=== PATIENT | female | born 1950 | race Caucasian/White ===

== ENCOUNTER 2016-11-13 18:45 | Emergency (ER) | payer OTHER ==
[2016-11-13 19:30] VITALS: BP 148/60
[2016-11-13] MEDS ORDERED: Albuterol/Ipratropium NEB.SOL* Albuterol 2.5 MG/Ipratropium 0.5 MG 3 ML INH ONE (19:40)
[2016-11-13] MEDS ORDERED: Azithromycin TAB* 250 MG PO ONE (20:15)
[2016-11-13] MEDS ORDERED: Albuterol HFA INHALER* 8 gm MDI INH PRN (20:15)
[2016-11-13] MEDS ORDERED: Albuterol HFA INHALER* 8 gm MDI INH ONE (20:30)
--- NOTE | 2016-11-13 20:44 | UC ---
Throat Pain/Nasal Claudio HPI - HPI Summary HPI Summary: PRODUCTIVE COUGH HEADACHE RUNNY NOSE 3 DAYS, WHEEZING. - History of Current Complaint Chief Complaint: UCRespiratory Stated Complaint: SINUS Time Seen by Provider: 11/13/16 19:20 Hx Obtained From: Patient Onset/Duration: Gradual Onset, Lasting Days Severity: Moderate Cough: Nonproductive Associated Signs & Symptoms: Positive: Wheezing, Hoarseness, Sinus Discomfort, Nasal Discharge - Epiglottits Risk Factors Epiglottis Risk Factors: Negative - Allergies/Home Medications Allergies/Adverse Reactions: Allergies Allergy/AdvReac Type Severity Reaction Status Date / Time No Known Allergies Allergy Verified 11/13/16 19:21 Home Medications: Home Medications Pravastatin (NF) [Pravachol (NF)] 20 mg PO BEDTIME 11/13/16 [History Confirmed 11/13/16] Zonisamide 100 mg PO BEDTIME 11/13/16 [History Confirmed 11/13/16] PMH/Surg Hx/FS Hx/Imm Hx Previously Healthy: Yes - Surgical History Surgical History: Yes Surgery Procedure, Year, and Place: Right [facility], 2006, [facility] LEFT shoulder - Family History Known Family History: Positive: Respiratory Disease - Social History Occupation: Employed Part-time Lives: With Family Alcohol Use: Rare Substance Use Type: None Smoking Status (MU): Never Smoked Tobacco - Immunization History Most Recent Influenza Vaccination: NONE 2016 Most Recent Tetanus Shot: UTD Most Recent Pneumonia Vaccination: NONE Review of Systems Constitutional: Fatigue Skin: Negative Eyes: Negative ENT: Ear Ache, Nasal Discharge, Sinus Congestion, Sinus Pain/Tenderness Respiratory: Cough, Other - WHEEZING Cardiovascular: Negative Gastrointestinal: Negative Genitourinary: Negative Motor: Negative Neurovascular: Negative Musculoskeletal: Negative Neurological: Negative Psychological: Negative Is Patient Immunocompromised?: No All Other Systems Reviewed And Are Negative: Yes Physical Exam Triage Information Reviewed: Yes Appearance: No Pain Distress, Well-Nourished, Ill-Appearing Vital Signs: Initial Vital Signs Temp 97.9 F 11/13/16 19:23 Pulse 73 11/13/16 19:23 Resp 18 11/13/16 19:23 BP 148/60 11/13/16 19:23 Pulse Ox 98 11/13/16 19:23 Vital Signs Reviewed: Yes Eye Exam: Normal ENT: Positive: Hearing grossly normal, Pharynx normal, Nasal congestion, TM bulging, TM dull Dental Exam: Normal Neck exam: Normal Neck: Positive: Supple, Nontender, No Lymphadenopathy Respiratory Exam: Other - COUGH Respiratory: Positive: Chest non-tender, No respiratory distress, No accessory muscle use, Wheezing Cardiovascular Exam: Normal Cardiovascular: Positive: RRR, No Murmur, Pulses Normal Abdominal Exam: Normal Musculoskeletal Exam: Normal Musculoskeletal: Positive: Strength Intact Neurological Exam: Normal Psychological Exam: Normal Psychological: Positive: Normal Response To Family Skin Exam: Normal Throat Pain/Nasal Course/Dx - Differential Dx/Diagnosis Differential Diagnosis/HQI/PQRI: Pharyngitis, Sinusitis, Tonsillitis, URI Provider Diagnoses: SINUSITIS; BRONCHITIS WITH BRONCHOSPASM Discharge - Discharge Plan Condition: Stable Disposition: HOME Prescriptions: Azithromycin TAB* [Zithromax TAB (Z-FRANCO) 250 mg #6 tabs] 250 mg PO DAILY #4 tab Patient Education Materials: Sinusitis (ED), Acute Bronchitis (ED), Bronchospasm (ED) Referrals: Brad BLANC,Maria Del Carmen Zepeda [Primary Care Provider] - As Soon As Possible
== END 2016-11-13 20:45 | disposition home or self-care (01) ==
LOC: UCCORT 18:45
DX: J32.9 Chronic sinusitis, unspecified (principal); J20.9 Acute bronchitis, unspecified
CPT/HCPCS: 99203; A9270-GY; G0463

== ENCOUNTER 2017-12-31 18:10 | Emergency (ER) | payer OTHER ==
--- OUTSIDE RECORDS SUMMARY | 2017-12-31 18:26 | XMS REPORT | Continuity of Care Document ---
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 Payers Type Date Identification Numbers Payment Provider Subscriber Effective: Policy Number: [id number] Lifetime Benefit SLNS Brenda Jeffers 2015 Group Number: [id number] [address] [address] PayID: [id number] Palomares [phone] Advance Directives Description No Information Available Problems Date Description Provider Status Onset: 05/23/2010 Mixed hyperlipidemia Maria Del Carmen Azevedo MD Active Family History Description No Information Available Social History Type Date Description Comments Sex Unknown Tobacco Use Start: Unknown Never Smoked Cigarettes ETOH Use rarely drinks etoh Allergies, Adverse Reactions, Alerts Description No Known Drug Allergies Medications Medication Date Status Form Strength Qnty SIG Indications Ordering Provider Cephalexin 12/31/ Active Tablets 500mg 21tabs one pill Bill Azevedo three times MD Maria Del Carmen a day for 7 days Pravastatin 12/04/ Active Tablets 20mg 30tabs 1 by mouth Latha Azevedo 2006 every day MD Maria Del Carmen Zonisamide / Active Capsules 100mg 3 by mouth Unknown 0000 every hs Cefdinir 06/12/ Hx Capsules 300mg 20caps 1 by mouth J01.00 Jolyl 2017 - twice a day MD Maria Del Carmen 07/01/ x 10 days 2017 Omnicef 05/23/ Hx Capsules 300mg 20caps 1 po bid 466.0 Jolly 2010 - MD Maria Del Carmen 2010 Diflucan 03/23/ Hx Tablets 100mg 7tabs 1 po qd x 616.10 Jolly, 2009 - 7days MD Maria Del Carmen 2009 Bactroban 11/25/ Hx Cream 2% 45gm apply as Jolly 2007 - directed bid MD Maria Del Carmen 07/17/ for 1-2 2012 weeks Augmentin 11/25/ Hx Tablets 875mg 20tabs 1 po bid Jolly, 2007 - with food MD Maria Del Carmen 2007 Bactrim DS 04/27/ Hx Tablets 800-160 20tabs 1 po bid x Ryley, 2007 - 10 days Shiela, 05/06/ RN,COUNTER PERSON,MS 2007 Robitussin ac 04/27/ Hx 60cc 1 tsp q4-6 Ryley, 2007 - hours prn Shiela, 05/06/ cough RN,COUNTER PERSON,MS 2007 Lexapro 02/03/ Hx Tablets 10mg 1 po qd 296.32 Jolly, 2005 - MD Maria Del Carmen 2010 Cipro 05/01/ Hx Tablets 500mg 14tabs 1 PO bid Jolly, 2005 - MD Maria Del Carmen 2005 Augmentin 07/04/ Hx Tablets 875mg 28tabs 1 po po bid Jolly, 2004 - with food MD Maria Del Carmen 2004 Amoxil 12/11/ Hx Tablets 875mg 20tabs 1 po bid 10 Jolly, 2003 - days MD Maria Del Carmen 2004 On Meds 10/24/ Hx PT takes Jolly 2003 - jose Joyce MD 12/04/ daily 2003 Diflucan 10/12/ Hx Tablet 150mg 1tabs One Tab PO Jolly 2002 - Times One MD Maria Del Carmen 04/19/ Day 2003 Lexapro 04/21/ Hx Tablets 20mg 30tabs 1 po qd 296.32 Jolly 2002 - MD Maria Del Carmen 2005 Ambien 09/01/ Hx Tablets 10mg 30tabs One PO QHS Jolly 2001 - prn Sleep MD Maria Del Carmen 2003 Celexa 06/16/ Hx Tablets 40mg 30tabs 1 PO Daily 296.32 Tera Christian 2001 - MD Joey 2002 Clonazepam 06/16/ Hx 30unit Clonazepam Jolly 2001 - s 1MG qd MD Maria Del Carmen 2001 Celexa 05/07/ Hx Tablets 20mg 1 PO qd Jolly 2001 - MD Maria Del Carmen 2001 Levetiracetam / Hx Tablets 500mg 1.5 tabs by Unknown 0000 - mouth twice 06/07/ a day 2014 Hydrocodone-Riley / Hx Tablets 5-325mg 2 POevery 6 Unknown taminophen 0000 - hours as 12/27/ needed pain 2016 Medications Administered in Office Medication Date Status Form Strength Qnty SIG Indications Ordering Provider PPD Administered Injection Emery, 2 Darryl N.P. PPD Administered Injection Emery, 1 Darryl N.P. Immunizations CPT Code Status Date Vaccine Lot # [id number] Given 12/28/2013 Fluvirin Immunization [id number] Given 03/23/2009 Tdap (Adacel) Ages 7 And Above Only [id number] Given 02/03/2006 Afluria Or Fluvirin Flu Vac Intramuscular [id number] Given 12/19/1998 Immunization Td 7 Yrs Or Older Vital Signs Date Vital Result Comment 12/31/2017 11:07am Body Temperature 97.9 F Weight 208.00 lb Heart Rate 88 /min BP Systolic 120 mmHg BP Diastolic 80 mmHg Height 61 inches 5'1" BMI (Body Mass Index) 39.3 kg/m2 07/07/2017 8:05am Body Temperature 98.0 F Weight 207.00 lb Heart Rate 68 /min BP Systolic 138 mmHg BP Diastolic 80 mmHg Height 61 inches 5'1" BMI (Body Mass Index) 39.1 kg/m2 01/01/2017 10:31am Body Temperature 97.0 F Weight 205.00 lb BP Systolic 130 mmHg BP Diastolic 82 mmHg 09/23/2016 9:54am Weight 196.50 lb Heart Rate 58 /min BP Systolic 130 mmHg BP Diastolic 82 mmHg Height 60.5 inches 5'0.50" BMI (Body Mass Index) 37.7 kg/m2 07/01/2016 10:28am Body Temperature 97.4 F Weight 196.00 lb Heart Rate 66 /min BP Systolic 136 mmHg BP Diastolic 96 mmHg BP Systolic Recheck 130 mmHg BP Diastolic Recheck 84 mmHg Height 60 inches 5'0" BMI (Body Mass Index) 38.3 kg/m2 06/12/2016 11:03am Body Temperature 97.0 F Weight 193.00 lb BP Systolic 120 mmHg BP Diastolic 70 mmHg Respiratory Rate 14 /min 12/28/2015 10:56am Body Temperature 98.7 F Weight 185.00 lb Heart Rate 60 /min BP Systolic 110 mmHg BP Diastolic 70 mmHg Height 61 inches 5'1" BMI (Body Mass Index) 35.0 kg/m2 10/12/2015 9:32am Weight 183.00 lb Heart Rate 57 /min BP Systolic 140 mmHg BP Diastolic 70 mmHg Height 61 inches 5'1" BMI (Body Mass Index) 34.6 kg/m2 06/28/2015 8:32am Body Temperature 98.6 F Weight 179.00 lb Heart Rate 60 /min BP Systolic 142 mmHg BP Diastolic 70 mmHg Height 61 inches 5'1" BMI (Body Mass Index) 33.8 kg/m2 Urine Dipstick - Blood NEGATIVE Urine Dipstick - Protein NEGATIVE Urine Dipstick - Glucose NEGATIVE Urine Dipstick - Leukocytes NEGATIVE 12/08/2014 10:48am Body Temperature 97.3 F Weight 175.00 lb Heart Rate 80 /min BP Systolic 126 mmHg BP Diastolic 84 mmHg Height 61 inches 5'1" BMI (Body Mass Index) 33.1 kg/m2 10/25/2014 10:01am Weight 172.00 lb Heart Rate 71 /min BP Systolic 133 mmHg BP Diastolic 75 mmHg Height 61 inches 5'1" BMI (Body Mass Index) 32.5 kg/m2 06/08/2014 10:29am Body Temperature 97.5 F Weight 184.00 lb Heart Rate 72 /min BP Systolic 142 mmHg BP Diastolic 90 mmHg Height 61 inches 5'1" BMI (Body Mass Index) 34.8 kg/m2 12/28/2013 11:18am Body Temperature 97.9 F Weight 209.00 lb Heart Rate 80 /min BP Systolic 132 mmHg BP Diastolic 84 mmHg Height 61 inches 5'1" BMI (Body Mass Index) 39.5 kg/m2 10/04/2013 10:09am Weight 223.00 lb Heart Rate 65 /min BP Systolic 130 mmHg BP Diastolic 86 mmHg Height 61 inches 5'1" BMI (Body Mass Index) 42.1 kg/m2 06/17/2013 9:05am Body Temperature 97.6 F Weight 224.00 lb Heart Rate 68 /min BP Systolic 124 mmHg BP Diastolic 80 mmHg Height 61 inches 5'1" BMI (Body Mass Index) 42.3 kg/m2 11/23/2012 10:30am Body Temperature 97.3 F Weight 219.00 lb Heart Rate 70 /min BP Systolic 134 mmHg BP Diastolic 88 mmHg Height 61 inches 5'1" BMI (Body Mass Index) 41.4 kg/m2 10/20/2012 10:48am Weight 220.00 lb Heart Rate 68 /min BP Systolic 122 mmHg BP Diastolic 86 mmHg Height 61.50 inches 5'1.50" BMI (Body Mass Index) 40.9 kg/m2 03/10/2012 10:29am Weight 212.00 lb Heart Rate 80 /min BP Systolic 138 mmHg BP Diastolic 88 mmHg Height 61 inches 5'1" BMI (Body Mass Index) 40.1 kg/m2 10/15/2011 8:52am Body Temperature 98.0 F Weight 212.00 lb Heart Rate 80 /min BP Systolic 134 mmHg BP Diastolic 88 mmHg Height 62 inches 5'2" O2 % BldC Oximetry 97 % BMI (Body Mass Index) 38.8 kg/m2 07/18/2011 8:09am Body Temperature 97.8 F Weight 213.00 lb BP Systolic 138 mmHg BP Diastolic 88 mmHg Height 61 inches 5'1" BMI (Body Mass Index) 40.2 kg/m2 01/17/2011 10:33am Body Temperature 98.2 F Weight 215.00 lb Heart Rate 70 /min BP Systolic 140 mmHg BP Diastolic 94 mmHg BP Systolic Recheck 140 mmHg BP Diastolic Recheck 90 mmHg Height 61 inches 5'1" BMI (Body Mass Index) 40.6 kg/m2 10/09/2010 1:50pm Body Temperature 96.5 F Weight 216.00 lb Heart Rate 71 /min BP Systolic 132 mmHg BP Diastolic 70 mmHg Height 61.5 inches 5'1.50" O2 % BldC Oximetry 97 % BMI (Body Mass Index) 40.1 kg/m2 05/23/2010 8:32am Body Temperature 97.7 F Weight 213.00 lb Heart Rate 70 /min BP Systolic 140 mmHg BP Diastolic 90 mmHg Height 61 inches 5'1" BMI (Body Mass Index) 40.2 kg/m2 12/18/2009 10:09am Weight 209.00 lb Heart Rate 80 /min BP Systolic 138 mmHg BP Diastolic 88 mmHg Respiratory Rate 10 /min 05/02/2009 10:21am Body Temperature 98.3 F Weight 218.00 lb Heart Rate 70 /min BP Systolic 146 mmHg BP Diastolic 104 mmHg 03/23/2009 9:55am Body Temperature 98.4 F Weight 217.00 lb Heart Rate 80 /min BP Systolic 124 mmHg BP Diastolic 84 mmHg Height 61 inches 5'1" BMI (Body Mass Index) 41.0 kg/m2 08/01/2008 10:33am Body Temperature 97.9 F Weight 222.00 lb Heart Rate 80 /min BP Systolic 132 mmHg BP Diastolic 88 mmHg 01/20/2008 8:28am Body Temperature 98.8 F Weight 221.00 lb Heart Rate 80 /min BP Systolic 126 mmHg BP Diastolic 88 mmHg 11/26/2007 1:46pm Body Temperature 98.6 F Weight 218.00 lb Heart Rate 80 /min BP Systolic 138 mmHg BP Diastolic 88 mmHg 08/18/2007 10:13am Body Temperature 98.0 F Weight 222.00 lb Heart Rate 80 /min BP Systolic 121 mmHg BP Diastolic 80 mmHg 04/27/2007 3:33pm Body Temperature 99.3 F Weight 213.00 lb Heart Rate 70 /min BP Systolic 116 mmHg BP Diastolic 74 mmHg 02/13/2007 10:15am Body Temperature 98.3 F Weight 213.00 lb Heart Rate 60 /min BP Systolic 126 mmHg BP Diastolic 78 mmHg 12/02/2006 8:21am Body Temperature 98.3 F Weight 207.00 lb Heart Rate 70 /min BP Systolic 124 mmHg BP Diastolic 80 mmHg 03/28/2006 1:01pm Body Temperature 98.6 F Weight 207.00 lb Heart Rate 90 /min BP Systolic 112 mmHg BP Diastolic 58 mmHg 02/03/2006 10:21am Body Temperature 97.8 F Weight 207.00 lb BP Systolic 136 mmHg BP Diastolic 84 mmHg 11/27/2005 8:43am Body Temperature 98.2 F Weight 207.00 lb Heart Rate 90 /min BP Systolic 136 mmHg BP Diastolic 84 mmHg 05/01/2005 10:06am Body Temperature 99.7 F Weight 205.00 lb Heart Rate 80 /min BP Systolic 116 mmHg BP Diastolic 80 mmHg 11/01/2004 8:44am Body Temperature 97.0 F Weight 211.00 lb Heart Rate 80 /min BP Systolic 126 mmHg BP Diastolic 82 mmHg 07/04/2004 10:34am Body Temperature 98.3 F Weight 210.00 lb BP Systolic 138 mmHg BP Diastolic 80 mmHg 05/31/2004 10:42am Body Temperature 98.4 F Tymp Weight 210.00 lb Heart Rate 72 /min BP Systolic 118 mmHg BP Diastolic 64 mmHg 04/24/2004 9:24am Body Temperature 98.0 F Weight 208.00 lb Heart Rate 80 /min BP Systolic 116 mmHg BP Diastolic 76 mmHg 12/12/2003 5:19pm Body Temperature 98.8 F Weight 207.00 lb Heart Rate 80 /min BP Systolic 140 mmHg BP Diastolic 80 mmHg Respiratory Rate 20 /min 10/25/2003 2:20pm Body Temperature 98.4 F Weight 207.00 lb Heart Rate 80 /min BP Systolic 114 mmHg BP Diastolic 80 mmHg 10/18/2003 1:09pm Body Temperature 98.5 F Weight 209.00 lb Heart Rate 90 /min BP Systolic 126 mmHg BP Diastolic 78 mmHg 04/19/2003 1:05pm Body Temperature 97.6 F Weight 204.00 lb Heart Rate 70 /min BP Systolic 122 mmHg BP Diastolic 66 mmHg 10/12/2002 8:46am Body Temperature 97.8 F Weight 192.00 lb Heart Rate 60 /min BP Systolic 108 mmHg BP Diastolic 76 mmHg 09/07/2002 10:37am Body Temperature 97.9 F Weight 185.00 lb Heart Rate 70 /min BP Systolic 126 mmHg BP Diastolic 78 mmHg 07/08/2002 2:57pm Body Temperature 97.4 F Weight 184.00 lb Heart Rate 70 /min BP Systolic 138 mmHg BP Diastolic 84 mmHg 04/21/2002 11:10am Weight 183.00 lb Heart Rate 68 /min BP Systolic 144 mmHg BP Diastolic 68 mmHg 12/03/2001 3:06pm Body Temperature 97.1 F Weight 194.00 lb Heart Rate 96 /min BP Systolic 108 mmHg BP Diastolic 80 mmHg 09/01/2001 8:13am Body Temperature 97.8 F Weight 178.00 lb Heart Rate 76 /min BP Systolic 114 mmHg BP Diastolic 80 mmHg 06/16/2001 9:06am Body Temperature 98.1 F Weight 186.00 lb Heart Rate 76 /min BP Systolic 124 mmHg BP Diastolic 76 mmHg Results Test Date Facility Test Result H/L Range Note Laboratory test finding 12/31/2017 [facility] Urine Culture <pending> Basic (BMP) 07/07/2017 [facility] Sodium 140 mmol/L 135-146 1 Potassium 4.4 mmol/L 3.5-5.2 Chloride# 108 mmol/L 97-110 2 Carbon Dioxide 24 mmol/L 24-34 Glucose 104 mg/dL 70-105 BUN 18 mg/dL 6- Creatinine 0.8 mg/dL 0.5-1.4 Calcium 9.6 mg/dL 8.5-10.2 Non Nelia Egfr >60 >60 3 Nelia Egfr >60 >60 4 Anion Gap 8 mmol/L 5-15 5 Lipid Treatment 07/07/2017 [facility] Cholesterol 189 mg/dL 50-199 Triglycerides 108 mg/dL 30-200 HDL 73 mg/dL 35-85 6 Chol/ HDL Ratio 2.6 ratio Low 3.7-5.6 VLDL 22 mg/dL 2-29 LDL (Calc) 94 mg/dL 20-99 7 Alt 15 U/L 3- Ast 13 U/L 8- Lipid Treatment 01/01/2017 [facility] Cholesterol 170 mg/dL 50-199 Triglycerides 150 mg/dL 30-200 HDL 65 mg/dL 35-85 8 Chol/ HDL Ratio 2.6 ratio Low 3.7-5.6 VLDL 30 mg/dL High 2-29 LDL (Calc) 75 mg/dL 20-99 9 Alt 17 U/L 3-42 Ast 14 U/L 8- Basic ([facility]) 01/01/2017 [facility] Sodium 140 mmol/L 135-146 10 Potassium 4.7 mmol/L 3.5-5.2 Chloride# 107 mmol/L 97-110 11 Carbon Dioxide 27 mmol/L 24-34 Glucose 93 mg/dL 70-105 Creatinine 0.8 mg/dL 0.5-1.4 Calcium 9.9 mg/dL 8.5-10.2 Non Nelia Egfr >60 >60 12 Nelia Egfr >60 >60 13 Anion Gap 6 mmol/L Low 7-16 14 BUN 18 mg/dL 6- Basic (BMP) 07/01/2016 [facility] Sodium 142 mmol/L 135-146 15 Potassium 4.2 mmol/L 3.5-5.2 Chloride# 108 mmol/L 97-110 16 Carbon Dioxide 25 mmol/L 24-34 Glucose 90 mg/dL 70-105 BUN 17 mg/dL 6- Creatinine 0.7 mg/dL 0.5-1.4 Calcium 9.9 mg/dL 8.5-10.2 Non Nelia Egfr >60 >60 17 Nelia Egfr >60 >60 18 Anion Gap 13 mmol/L 7-16 19 Lipid Treatment 07/01/2016 [facility] Cholesterol 175 mg/dL 50-199 Triglycerides 78 mg/dL 30-200 HDL 78 mg/dL 35-85 20 Chol/ HDL Ratio 2.2 ratio Low 3.7-5.6 VLDL 16 mg/dL 2-29 LDL (Calc) 81 mg/dL 20-99 21 Alt 16 U/L 3-42 Ast 14 U/L 8-42 Laboratory test 07/01/2016 [facility] Hepatitis C Virus NONREACTIVE Nonreactive finding Antibody Basic (BMP) 06/28/2015 [facility] Sodium 135 mmol/L 134-142 Potassium 4.3 mmol/L 3.5-5.2 Chloride 103 mmol/L 97-109 Carbon Dioxide 23 mmol/L Low 24-34 22 Glucose 95 mg/dL 70-105 BUN 32 mg/dL High 6- Creatinine 1.0 mg/dL 0.5-1.4 Calcium 9.7 mg/dL 8.5-10.2 Anion Gap 13 mmol/L 6-14 Non Nelia Egfr 57 Low >60 23 Nelia Egfr >60 >60 24 Lipid Treatment 06/28/2015 [facility] Cholesterol 193 mg/dL 50-199 Triglycerides 104 mg/dL 30-200 HDL 76 mg/dL 35-85 25 Chol/ HDL Ratio 2.5 ratio Low 3.7-5.6 VLDL 21 mg/dL 2-29 LDL (Calc) 96 mg/dL 20-99 26 Alt 20 U/L 3-42 Ast 16 U/L 8-42 Laboratory test finding 06/28/2015 [facility] Pap SEE NOTE 27 Lipid Treatment 12/08/2014 [facility] Cholesterol 165 mg/dL 50-199 Triglycerides 87 mg/dL 30-200 HDL 65 mg/dL 35-85 28 Chol/ HDL Ratio 2.5 ratio Low 3.7-5.6 VLDL 17 mg/dL 2-29 LDL (Calc) 83 mg/dL 20-99 29 Alt 17 U/L 3-42 Ast 15 U/L 8-42 Basic (BMP) 06/08/2014 [facility] Sodium 137 mmol/L 134-142 Potassium 4.3 mmol/L 3.5-5.2 Chloride 104 mmol/L 97-109 Carbon Dioxide 24 mmol/L 24-34 Glucose 93 mg/dL 70-105 BUN 18 mg/dL 6-26 Creatinine 0.8 mg/dL 0.5-1.4 Calcium 9.7 mg/dL 8.5-10.2 Anion Gap 13 mmol/L 6-14 Non Nelia Egfr >60 >60 30 Nelia Egfr >60 >60 31 Lipid Treatment 06/08/2014 [facility] Cholesterol 162 mg/dL 50-199 Triglycerides 115 mg/dL 30-200 HDL 57 mg/dL 35-85 32 Chol/ HDL Ratio 2.8 ratio Low 3.7-5.6 VLDL 23 mg/dL 2-29 LDL (Calc) 82 mg/dL 20-99 33 Alt 17 U/L 3- Ast 12 U/L 8- Basic (BMP) 12/28/2013 [facility] Sodium 139 mmol/L 134-142 Potassium 4.2 mmol/L 3.5-5.2 Chloride 104 mmol/L 97-109 Carbon Dioxide 27 mmol/L 24-34 Glucose 99 mg/dL 70-105 BUN 13 mg/dL 6-26 Creatinine 0.8 mg/dL 0.5-1.4 Calcium 9.8 mg/dL 8.5-10.2 Anion Gap 12 mmol/L 6- Non Nelia Egfr >60 >60 34 Nelia Egfr >60 >60 35 Lipid Treatment 12/28/2013 [facility] Cholesterol 157 mg/dL 50-199 Triglycerides 133 mg/dL 30-200 HDL 40 mg/dL 35- 36 Chol/ HDL Ratio 3.9 ratio 3.7-5.6 VLDL 27 mg/dL 2- LDL (Calc) 90 mg/dL 20-99 37 Alt 25 U/L 3- Ast 18 U/L - Laboratory test finding 12/28/2013 [facility] TSH 1.00 uIU/mL 0.34-5.60 Laboratory test finding 06/17/2013 [facility] Pap SEE NOTE 38 Basic (BMP) 06/17/2013 [facility] Sodium 138 mmol/L 134-142 Potassium 4.6 mmol/L 3.5-5.2 Chloride 105 mmol/L 97-109 Carbon Dioxide 27 mmol/L 24-34 Glucose 96 mg/dL 70-105 BUN 15 mg/dL 6- Creatinine 0.8 mg/dL 0.5-1.4 Calcium 9.6 mg/dL 8.5-10.2 Anion Gap 11 mmol/L 6-14 Non Nelia Egfr >60 >60 39 Nelia Egfr >60 >60 40 Lipid Treatment 06/17/2013 [facility] Cholesterol 176 mg/dL 50-199 Triglycerides 127 mg/dL 30-200 HDL 53 mg/dL 35-85 41 Chol/ HDL Ratio 3.3 ratio Low 3.7-5.6 VLDL 25 mg/dL 2-29 LDL (Calc) 98 mg/dL 20-99 42 Alt 18 U/L 3-42 Ast 13 U/L 8- Basic (BMP) 11/23/2012 [facility] Sodium 136 mmol/L 134-142 Potassium 4.3 mmol/L 3.5-5.2 Chloride 104 mmol/L 97-109 Carbon Dioxide 30 mmol/L 24-34 Glucose 95 mg/dL 70-105 BUN 12 mg/dL 6- Creatinine 0.8 mg/dL 0.5-1.4 Calcium 9.9 mg/dL 8.5-10.2 Anion Gap 6 mmol/L 6- Non Nelia Egfr >60 >60 43 Nelia Egfr >60 >60 44 Lipid Treatment 11/23/2012 [facility] Cholesterol 201 mg/dL High 50-199 Triglycerides 149 mg/dL 30-200 HDL 46 mg/dL 35-85 45 Chol/ HDL Ratio 4.4 ratio 3.7-5.6 VLDL 30 mg/dL High 2-29 LDL (Calc) 125 mg/dL High 20-99 46 Alt 20 U/L 3- Ast 15 U/L 8- Lipid Treatment 03/10/2012 [facility] Cholesterol 179 mg/dL 50-199 Triglycerides 103 mg/dL 30-200 HDL 46 mg/dL 35-85 47 Chol/ HDL Ratio 3.9 ratio 3.7-5.6 VLDL 21 mg/dL 2-29 LDL (Calc) 112 mg/dL 20-129 48 Non HDL Cholesterol 133 mg/dL High 20-129 49 Alt 33 U/L 3-42 Ast 20 U/L 8- Laboratory test finding 07/18/2011 [facility] Pap SEE NOTE 50 Basic (BMP) 07/18/2011 [facility] Sodium 139 mmol/L 134-142 Potassium 4.4 mmol/L 3.5-5.2 Chloride 103 mmol/L 97-109 Carbon Dioxide 31 mmol/L 24-34 Glucose 96 mg/dL 70-105 BUN 16 mg/dL 6-26 Creatinine 0.8 mg/dL 0.5-1.4 Calcium 9.6 mg/dL 8.5-10.2 Anion Gap 9 mmol/L 6-14 BUN/CR 21 ratio High 12-20 Non Nelia Egfr >60 >60 51 Nelia Egfr >60 >60 52 Lipid Treatment 07/18/2011 [facility] Cholesterol 190 mg/dL 50-199 Triglycerides 138 mg/dL 30-200 HDL 52 mg/dL 35-85 53 Chol/ HDL Ratio 3.7 ratio 3.7-5.6 VLDL 28 mg/dL 2-29 LDL (Calc) 110 mg/dL 20-129 54 Alt 16 U/L 3-42 Ast 12 U/L 8-42 Basic (BMP) 01/17/2011 [facility] Sodium 140 mmol/L 135-144 Potassium 4.3 mmol/L 3.6-5.2 Chloride 104 mmol/L 97-110 Carbon Dioxide 26 mmol/L 23-32 Glucose 86 mg/dL 70-105 BUN 14 mg/dL 6-22 Creatinine 0.8 mg/dL 0.5-1.3 Calcium 9.8 mg/dL 8.6-10.2 Anion Gap 14 mmol/L 8-16 BUN/CR 18 ratio 12-20 Non Nelia Egfr >60 >60 55 Nelia Egfr >60 >60 56 Lipid Treatment 01/17/2011 [facility] Cholesterol 192 mg/dL 50-199 Triglycerides 155 mg/dL High 10-150 HDL 57 mg/dL 35-85 57 Chol/ HDL Ratio 3.4 ratio Low 3.7-5.6 VLDL 31 mg/dL High 2-29 LDL (Calc) 104 mg/dL 20-129 58 Alt 25 U/L 5-45 Ast 21 U/L 12-40 Basic (BMP) 05/23/2010 [facility] Sodium 140 mmol/L 135-144 Potassium 4.5 mmol/L 3.6-5.2 Chloride 103 mmol/L 97-110 Carbon Dioxide 30 mmol/L 23-32 Glucose 97 mg/dL 70-105 BUN 12 mg/dL 6-22 Creatinine 0.9 mg/dL 0.5-1.3 Calcium 9.9 mg/dL 8.6-10.2 Anion Gap 12 mmol/L 8-16 BUN/CR 13 ratio 12-20 Not AfricanGFR >60 >60 59 AmGFR >60 >60 60 Lipid Treatment 05/23/2010 [facility] Cholesterol 167 mg/dL 50-199 Triglycerides 131 mg/dL 10-150 HDL 50 mg/dL 35-85 61 Chol/HDL 3.3 ratio Low 3.7-5.6 VLDL 26 mg/dL 2-29 LDL 91 mg/dL 20-129 62 Alt 26 U/L 5-45 Ast 20 U/L 12-40 Laboratory test 05/23/2010 [facility] Pap SEE NOTE 63 finding Laboratory test 01/19/2010 [facility] (Do not Use) Urine Culture MIXED UROGENITAL 64 finding [facility] <SEE NOTE> [place] [address] [phone] Lipid TX Panel 12/18/2009 [facility] (Do not Use) Ast 21 U/L 12-40 [facility] [place] [address] [phone] Alt 28 U/L 5-45 Cholesterol 198 mg/dL 50-199 Triglycerides 118 mg/dL 10-150 HDL 54 mg/dL 35-85 65 LDL (Calc) 120 mg/dL 20-129 66 Chol/HDL Ratio 3.7 Ratio 3.7-5.6 67 VLDL 24 mg/dL 2-29 Lipid TX Panel 03/23/2009 [facility] (Do not Use) Ast 22 U/L 12-40 [facility] [place] [address] [phone] Alt 22 U/L 5-45 Cholesterol 200 mg/dL High 50-199 Triglycerides 181 mg/dL High 10-150 HDL 53 mg/dL 35-85 68 LDL (Calc) 111 mg/dL 20-129 69 Chol/HDL Ratio 3.8 Ratio 3.7-5.6 70 VLDL 36 mg/dL High 2-29 Laboratory test 03/23/2009 [facility] (Do not Use) [facility] Pap - (SEE NOTE) 71 finding [facility] [place] [address] [phone] Basic (BMP) 03/23/2009 [facility] (Do not Use) Sodium 140 mmol/L 135- 14 [facility] [address] [place] [id number] [phone] Potassium 4.4 mmol/L 3.6-5.2 Chloride 103 mmol/L 97-110 Carbon Dioxide 29 mmol/L 23-32 Glucose 90 mg/dL 70-105 BUN 11 mg/dL 6-22 Creatinine 0.8 mg/dL 0.5-1.3 BUN/CR 14 Ratio Anion Gap 12 mmol/L 8-16 Calcium 9.5 mg/dL 8.6-10.2 72 GFR Calculation > 60 mL/min 60-175 73 GFR For > 60 mL/min 60-175 74 Lipid TX Panel 08/01/2008 [facility] (Do not Use) Ast 25 U/L 12-40 75 [facility] [place] [address] [phone] Alt 34 U/L 4-45 Cholesterol 215 mg/dL High 50-199 Triglycerides 142 mg/dL 10-150 HDL 52 mg/dL 35-85 76 LDL (Calc) 135 mg/dL High 20-129 77 Chol/HDL Ratio 4.1 Ratio 3.7-5.6 78 VLDL 28 mg/dL 2-29 Basic (BMP) 01/20/2008 [facility] (Do not Use) Sodium 138 mmol/L 135- 144 79 [facility] [place] [address] [phone] Potassium 4.6 mmol/L 3.6-5.2 Chloride 103 mmol/L 97-110 Carbon Dioxide 28 mmol/L 23-33 Glucose 103 mg/dL (70-99) BUN 12 mg/dL 6-22 Creatinine 0.8 mg/dL 0.5-1.3 BUN/CR 15 Ratio 12.0-20.0 Anion Gap 12 mmol/L 8-16 Calcium 10.0 mg/dL 8.6-10.2 80 GFR Calculation > 60 mL/min 81 GFR For > 60 mL/min 82 Lipid TX Panel 01/20/2008 [facility] (Do not Use) Ast 23 U/L 12-40 [facility] [place] [address] [phone] Alt 28 U/L 4-45 Cholesterol 221 mg/dL High 50-199 Triglycerides 145 mg/dL 10-150 HDL 55 mg/dL 35-85 83 LDL (Calc) 137 mg/dL High 20-129 84 Chol/HDL Ratio 4.0 Ratio 85 VLDL 29 mg/dL Laboratory test 01/20/2008 [facility] (Do not Use) [facility] Pap - (SEE NOTE) 86 finding [facility] [place] [address] [phone] Lipid TX Panel 08/18/2007 [facility] (Do not Use) Ast 20 U/L 12-40 [facility] [place] [address] [phone] Alt 23 U/L 4-45 Cholesterol 195 mg/dL 50-199 Triglycerides 168 mg/dL High 10-150 HDL 56 mg/dL 35-85 LDL (Calc) 105 mg/dL 20-129 Chol/HDL Ratio 3.5 Ratio VLDL 34 mg/dL Lipid TX Panel 02/13/2007 [facility] (Do not Use) Ast 21 U/L 12-40 [facility] [place] [address] [phone] Alt 20 U/L 4-45 Cholesterol 196 mg/dL 50-199 Triglycerides 106 mg/dL 10-150 HDL 54 mg/dL 35-85 LDL (Calc) 121 mg/dL 20-129 Chol/HDL Ratio 3.6 Ratio VLDL 21 mg/dL Lipid TX Panel 12/02/2006 [facility] (Do not Use) Ast 24 U/L 12-40 [facility] [place] [address] [phone] Alt 27 U/L 4-45 Cholesterol 250 mg/dL High 50-199 Triglycerides 146 mg/dL 10-150 HDL 52 mg/dL 35-85 LDL (Calc) 169 mg/dL High 20-129 Chol/HDL Ratio 4.8 Ratio VLDL 29 mg/dL Basic (BMP) 02/03/2006 [facility] (Do not Use) Sodium 137 mmol/L 135- 144 [facility] [place] [address] [phone] Potassium 4.3 mmol/L 3.6-5.2 Chloride 102 mmol/L 97-110 Carbon Dioxide 27 mmol/L 23-33 Glucose 78 mg/dL 70-105 BUN 19 mg/dL 6-22 Creatinine 0.9 mg/dL 0.5-1.3 BUN/CR 21 Ratio High 12.0-20.0 Anion Gap 12 mmol/L 8-16 Calcium 9.6 mg/dL 8.6-10.2 GFR White Male 93 GFR White Female 69 GFR Black Male 113 GFR Black Female 83 GFR Guidelines 0 87 Laboratory test 11/27/2005 [facility] (Do not Use) Papsmear, SEE REFERENCE 88 finding [facility] <SEE NOTE> [place] [address] [phone] Laboratory test 05/01/2005 [facility] (Do not Use) Urine Culture >100,000 89 finding [facility] CFU/ML <[place] [address] NOTE> [phone] Lipid Panel 05/01/2005 [facility] (Do not Use) Cholesterol 208 mg/dL High 50-1 [facility] [address] [place] [address] [phone] Triglycerides 124 mg/dL 10-150 HDL 55 mg/dL 35-85 Chol/HDL Ratio 3.8 Ratio VLDL 25 mg/dL LDL (Calc) 128 mg/dL 20-129 Gram Negative 05/01/2005 [facility] (Do not Use) Amoxicillin/Clavulanic SENSITIVE Sensitivity [facility] [place] [address] [phone] Ampicillin SENSITIVE Cefotaxime SENSITIVE Ceftriaxone SENSITIVE Cephalothin SENSITIVE Ciprofloxacin SENSITIVE Nitrofurantoin SENSITIVE Norfloxacin SENSITIVE Tetracycline SENSITIVE Trimethoprim/Sulfa SENSITIVE Laboratory test 05/31/2004 [facility] (Do not Use) Throat Culture NO GROWTH [address] [place] [address] [phone] Lipid TX Panel 04/24/2004 [facility] (Do not Use) Ast 18 U/L 8-42 [facility] [place] [address] [phone] Alt 20 U/L 3-42 Cholesterol 189 mg/dL 50-199 Triglycerides 119 mg/dL 30-200 HDL 44 mg/dL 35-85 LDL (Calc) 121 mg/dL 20-129 Chol/HDL Ratio 4.3 Ratio VLDL 24 mg/dL Lipid Panel 10/25/2003 [facility] (Do not Use) Cholesterol 203 mg/dL High 50-199 [facility] [place], [place] [id number] [phone] Triglycerides 234 mg/dL High 30-200 HDL 44 mg/dL 35-85 Chol/HDL Ratio 4.6 Ratio VLDL 47 mg/dL LDL (Calc) 112 mg/dL 20-129 Basic (BMP) 10/12/2002 [facility] (Do not Use) Sodium 137 mmol/L 135- 145 [facility] [place], [place] [id number] [phone] Potassium 4.5 mmol/L 3.4-5.3 Chloride 101 mmol/L 98-111 Carbon Dioxide 28 mmol/L 22-33 Glucose 87 mg/dL 70-105 BUN 19 mg/dL 6-26 Creatinine 0.8 mg/dL 0.5-1.5 BUN/CR 24 Ratio High 12.0-20.0 Anion Gap 13 mmol/L 10-20 Calcium 9.5 mg/dL 8.6-10.3 Lipid Panel 10/12/2002 [facility] (Do not Use) Cholesterol 207 mg/dL High 50-199 [facility] [employer] [place], [place] [id number] [phone] Triglycerides 195 mg/dL 30-200 HDL 63 mg/dL 35-85 Chol/HDL Ratio 3.3 Ratio VLDL 39 mg/dL LDL (Calc) 105 mg/dL 20-129 Lipid Panel 09/01/2001 [facility] (Do not Use) Cholesterol 215 mg/dL High 50-199 [facility] [place] [address] [phone] Triglycerides 174 mg/dL 30-249 HDL Cholesterol 58 mg/dL 29-86 LDL(Calc) 123 mg/dL 20-129 Chol/HDL Ratio 3.72 91 VLDL Cholesterol 35 mg/dL Laboratory test 05/07/2001 [facility] (Do not Use) Urine Culture NO GROWTH finding [place], [place] [id number] [phone] 1 Updated reference range on new analyzer 2 Updated reference range on new analyzer 3 Concerning GFR Guidelines: Normal function or mild renal disease, if clinically at risk: >/=60 mL/min Moderately decreased: 30-59 Severely decreased: 15-29 Renal failure: <15 Glomerular Filtration Rate (GFR) is estimated based on the MDRD equation, which assumes a steady state for creatinine as recommended by the National Kidney Disease Education Program in conjunction with the National Institutes of Health and the National Kidney Foundation. Clinical conditions in which it may be necessary to measure GFR by using clearance methods include extremes of age and body size, severe malnutrition or obesity, diseases of skeletal muscle, paraplegia or quadriplegia, vegetarian diet, rapidly changing kidney function, and calculation of the dose of potentially toxic drugs that are excreted by the kidneys. 4 Concerning GFR Guidelines for Americans: Normal function or mild renal disease, if clinically at risk: >/=60 mL/min Moderately decreased: 30-59 Severely decreased: 15-29 Renal failure: <15 5 Updated Reference Range 6 Per NCEP ATP III Guidelines: Results lower than 40 mg/dL are suggestive of increased risk for coronary artery disease. Results > or=to 60 mg/dL are considered a negative risk factor. 7 Per NCEP ATP III Guidelines: Normal Population <130 Patients with medical conditions: CHD/DM Optimal: <100 Borderline high: 130-159 High: 160-189 Very high: >189 8 Per NCEP ATP III Guidelines: Results lower than 40 mg/dL are suggestive of increased risk for coronary artery disease. Results > or=to 60 mg/dL are considered a negative risk factor. 9 Per NCEP ATP III Guidelines: Normal Population <130 Patients with medical conditions: CHD/DM Optimal: <100 Borderline high: 130-159 High: 160-189 Very high: >189 10 Updated reference range on new analyzer 11 Updated reference range on new analyzer 12 Concerning GFR Guidelines: Normal function or mild renal disease, if clinically at risk: >/=60 mL/min Moderately decreased: 30-59 Severely decreased: 15-29 Renal failure: <15 Glomerular Filtration Rate (GFR) is estimated based on the MDRD equation, which assumes a steady state for creatinine as recommended by the National Kidney Disease Education Program in conjunction with the National Institutes of Health and the National Kidney Foundation. Clinical conditions in which it may be necessary to measure GFR by using clearance methods include extremes of age and body size, severe malnutrition or obesity, diseases of skeletal muscle, paraplegia or quadriplegia, vegetarian diet, rapidly changing kidney function, and calculation of the dose of potentially toxic drugs that are excreted by the kidneys. 13 Concerning GFR Guidelines for Americans: Normal function or mild renal disease, if clinically at risk: >/=60 mL/min Moderately decreased: 30-59 Severely decreased: 15-29 Renal failure: <15 14 Updated reference range on new analyzer 15 Updated reference range on new analyzer 16 Updated reference range on new analyzer 17 Concerning GFR Guidelines: Normal function or mild renal disease, if clinically at risk: >/=60 mL/min Moderately decreased: 30-59 Severely decreased: 15-29 Renal failure: <15 Glomerular Filtration Rate (GFR) is estimated based on the MDRD equation, which assumes a steady state for creatinine as recommended by the National Kidney Disease Education Program in conjunction with the National Institutes of Health and the National Kidney Foundation. Clinical conditions in which it may be necessary to measure GFR by using clearance methods include extremes of age and body size, severe malnutrition or obesity, diseases of skeletal muscle, paraplegia or quadriplegia, vegetarian diet, rapidly changing kidney function, and calculation of the dose of potentially toxic drugs that are excreted by the kidneys. 18 Concerning GFR Guidelines for Americans: Normal function or mild renal disease, if clinically at risk: >/=60 mL/min Moderately decreased: 30-59 Severely decreased: 15-29 Renal failure: <15 19 Updated reference range on new analyzer 20 Per NCEP ATP III Guidelines: Results lower than 40 mg/dL are suggestive of increased risk for coronary artery disease. Results > or=to 60 mg/dL are considered a negative risk factor. 21 Per NCEP ATP III Guidelines: Normal Population <130 Patients with medical conditions: CHD/DM Optimal: <100 Borderline high: 130-159 High: 160-189 Very high: >189 22 short draw 23 Concerning GFR Guidelines: Normal function or mild renal disease, if clinically at risk: >/=60 mL/min Moderately decreased: 30-59 Severely decreased: 15-29 Renal failure: <15 Glomerular Filtration Rate (GFR) is estimated based on the MDRD equation, which assumes a steady state for creatinine as recommended by the National Kidney Disease Education Program in conjunction with the National Institutes of Health and the National Kidney Foundation. Clinical conditions in which it may be necessary to measure GFR by using clearance methods include extremes of age and body size, severe malnutrition or obesity, diseases of skeletal muscle, paraplegia or quadriplegia, vegetarian diet, rapidly changing kidney function, and calculation of the dose of potentially toxic drugs that are excreted by the kidneys. 24 Concerning GFR Guidelines for Americans: Normal function or mild renal disease, if clinically at risk: >/=60 mL/min Moderately decreased: 30-59 Severely decreased: 15-29 Renal failure: <15 25 Per NCEP ATP III Guidelines: Results lower than 40 mg/dL are suggestive of increased risk for coronary artery disease. Results > or=to 60 mg/dL are considered a negative risk factor. 26 Per NCEP ATP III Guidelines: Normal Population <130 Patients with medical conditions: CHD/DM Optimal: <100 Borderline high: 130-159 High: 160-189 Very high: >189 27 LABORATORY [facility]. [address] [place] [id number] GYNECOLOGIC CYTOLOGY REPORT Accession Number: [id number] Source of Specimen(s): A: [employer] Endocervical Pap Smear - One Vial Clinical Diagnosis and History: Date of Last Menstrual Period: None Provided Menstrual History: Post-menopausal Other Clinical Conditions: Last Pap Smear: 06/17/13 wnl REFLEX TO HPV ASSAY IF RESULTS OF THIS PAP ARE ASCUS Specimen Adequacy Satisfactory for evaluation Presence of endocervical/transformation zone cannot be assessed due to atrophic changes. It may be difficult to distinguish squamous metaplastic cells from parabasal type cells in specimens showing atrophy due to a variety of hormonal changes including menopause, post changes and progestational agents. General Categorization Negative for intraepithelial lesion or malignancy Interpretation NEGATIVE FOR INTRAEPITHELIAL LESION OR MALIGNANCY Reported: 06/30/2015 Electronically Signed Out By Yaz LARA(ASCP) [facility] [place] Unless otherwise specified, testing performed by [facility] [place] [facility] [employer] [address] [place] [address] 28 Per NCEP ATP III Guidelines: Results lower than 40 mg/dL are suggestive of increased risk for coronary artery disease. Results > or=to 60 mg/dL are considered a negative risk factor. 29 Per NCEP ATP III Guidelines: Normal Population <130 Patients with medical conditions: CHD/DM Optimal: <100 Borderline high: 130-159 High: 160-189 Very high: >189 30 Concerning GFR Guidelines: Normal function or mild renal disease, if clinically at risk: >/=60 mL/min Moderately decreased: 30-59 Severely decreased: 15-29 Renal failure: <15 Glomerular Filtration Rate (GFR) is estimated based on the MDRD equation, which assumes a steady state for creatinine as recommended by the National Kidney Disease Education Program in conjunction with the National Institutes of Health and the National Kidney Foundation. Clinical conditions in which it may be necessary to measure GFR by using clearance methods include extremes of age and body size, severe malnutrition or obesity, diseases of skeletal muscle, paraplegia or quadriplegia, vegetarian diet, rapidly changing kidney function, and calculation of the dose of potentially toxic drugs that are excreted by the kidneys. 31 Concerning GFR Guidelines for Americans: Normal function or mild renal disease, if clinically at risk: >/=60 mL/min Moderately decreased: 30-59 Severely decreased: 15-29 Renal failure: <15 32 Per NCEP ATP III Guidelines: Results lower than 40 mg/dL are suggestive of increased risk for coronary artery disease. Results > or=to 60 mg/dL are considered a negative risk factor. 33 Per NCEP ATP III Guidelines: Normal Population <130 Patients with medical conditions: CHD/DM Optimal: <100 Borderline high: 130-159 High: 160-189 Very high: >189 34 Concerning GFR Guidelines: Normal function or mild renal disease, if clinically at risk: >/=60 mL/min Moderately decreased: 30-59 Severely decreased: 15-29 Renal failure: <15 Glomerular Filtration Rate (GFR) is estimated based on the MDRD equation, which assumes a steady state for creatinine as recommended by the National Kidney Disease Education Program in conjunction with the National Institutes of Health and the National Kidney Foundation. Clinical conditions in which it may be necessary to measure GFR by using clearance methods include extremes of age and body size, severe malnutrition or obesity, diseases of skeletal muscle, paraplegia or quadriplegia, vegetarian diet, rapidly changing kidney function, and calculation of the dose of potentially toxic drugs that are excreted by the kidneys. 35 Concerning GFR Guidelines for Americans: Normal function or mild renal disease, if clinically at risk: >/=60 mL/min Moderately decreased: 30-59 Severely decreased: 15-29 Renal failure: <15 36 Per NCEP ATP III Guidelines: Results lower than 40 mg/dL are suggestive of increased risk for coronary artery disease. Results > or=to 60 mg/dL are considered a negative risk factor. 37 Per NCEP ATP III Guidelines: Normal Population <130 Patients with medical conditions: CHD/DM Optimal: <100 Borderline high: 130-159 High: 160-189 Very high: >189 38 LABORATORY [facility]. [address] [place] [address] GYNECOLOGIC CYTOLOGY REPORT Accession Number: [id number] Source of Specimen(s): A: [employer] Cervical / Endocervical Pap Smear - One Vial Clinical Diagnosis and History: Date of Last Menstrual Period: 2 weeks Other Clinical Conditions: Last Pap Smear: 1 YR NL REFLEX TO HPV ASSAY IF RESULTS OF THIS PAP ARE ASCUS Specimen Adequacy Satisfactory for evaluation Presence of endocervical/transformation zone component General Categorization Negative for intraepithelial lesion or malignancy Interpretation NEGATIVE FOR INTRAEPITHELIAL LESION OR MALIGNANCY Reported: 06/21/2013 Electronically Signed Out By Jackie LARA([facility]) [facility] Unless otherwise specified, testing performed by [facility] [place] [facility] [employer] [facility] [employer] [address] [address] 39 Concerning GFR Guidelines: Normal function or mild renal disease, if clinically at risk: >/=60 mL/min Moderately decreased: 30-59 Severely decreased: 15-29 Renal failure: <15 Glomerular Filtration Rate (GFR) is estimated based on the MDRD equation, which assumes a steady state for creatinine as recommended by the National Kidney Disease Education Program in conjunction with the National Institutes of Health and the National Kidney Foundation. Clinical conditions in which it may be necessary to measure GFR by using clearance methods include extremes of age and body size, severe malnutrition or obesity, diseases of skeletal muscle, paraplegia or quadriplegia, vegetarian diet, rapidly changing kidney function, and calculation of the dose of potentially toxic drugs that are excreted by the kidneys. 40 Concerning GFR Guidelines for Americans: Normal function or mild renal disease, if clinically at risk: >/=60 mL/min Moderately decreased: 30-59 Severely decreased: 15-29 Renal failure: <15 41 Per NCEP ATP III Guidelines: Results lower than 40 mg/dL are suggestive of increased risk for coronary artery disease. Results > or=to 60 mg/dL are considered a negative risk factor. 42 Per NCEP ATP III Guidelines: Normal Population <130 Patients with medical conditions: CHD/DM Optimal: <100 Borderline high: 130-159 High: 160-189 Very high: >189 43 Concerning GFR Guidelines: Normal function or mild renal disease, if clinically at risk: >/=60 mL/min Moderately decreased: 30-59 Severely decreased: 15-29 Renal failure: <15 Glomerular Filtration Rate (GFR) is estimated based on the MDRD equation, which assumes a steady state for creatinine as recommended by the National Kidney Disease Education Program in conjunction with the National Institutes of Health and the National Kidney Foundation. Clinical conditions in which it may be necessary to measure GFR by using clearance methods include extremes of age and body size, severe malnutrition or obesity, diseases of skeletal muscle, paraplegia or quadriplegia, vegetarian diet, rapidly changing kidney function, and calculation of the dose of potentially toxic drugs that are excreted by the kidneys. 44 Concerning GFR Guidelines for Americans: Normal function or mild renal disease, if clinically at risk: >/=60 mL/min Moderately decreased: 30-59 Severely decreased: 15-29 Renal failure: <15 45 Per NCEP ATP III Guidelines: Results lower than 40 mg/dL are suggestive of increased risk for coronary artery disease. Results > or=to 60 mg/dL are considered a negative risk factor. 46 Per NCEP ATP III Guidelines: Normal Population <130 Patients with medical conditions: CHD/DM Optimal: <100 Borderline high: 130-159 High: 160-189 Very high: >189 47 Per NCEP ATP III Guidelines: Results lower than 40 mg/dL are suggestive of increased risk for coronary artery disease. Results > or=to 60 mg/dL are considered a negative risk factor. 48 Per NCEP ATP III Guidelines: Optimal: <100 Near optimal: 100-129 Borderline high: 130-159 High: 160-189 Very high: >189 49 Desirable: <130 Borderline High: 130-159 High: 160-189 Very high: 190 or greater 50 [facility] [employer] [facility]. [facility] [place] [address] GYNECOLOGIC CYTOLOGY REPORT Accession Number: [id number] Source of Specimen(s): A: [employer] Endocervical Pap Smear - One Vial Clinical Diagnosis and History: Date of Last Menstrual Period: menopause Menstrual History: Post-menopausal Other Clinical Conditions: Last Pap Smear: 05/11 wnl REFLEX TO DIGENE HPV ASSAY IF RESULTS OF THIS PAP ARE ASCUS Specimen Adequacy Satisfactory for evaluation Scant/no endocervical component General Categorization Negative for intraepithelial lesion or malignancy Interpretation NEGATIVE FOR INTRAEPITHELIAL LESION OR MALIGNANCY Acute inflammatory cells Reported: 07/22/2011 Electronically Signed Out By Melody LARA(ASCP) Director Of Epidemiology: Yaz LARA(ASCP) [facility] dol QC Reviewed: Y Unless otherwise specified, testing performed [facility] [place] [address] [place] [address] 51 Concerning GFR Guidelines: Normal function or mild renal disease, if clinically at risk: >/=60 mL/min Moderately decreased: 30-59 Severely decreased: 15-29 Renal failure: <15 Glomerular Filtration Rate (GFR) is estimated based on the MDRD equation, which assumes a steady state for creatinine as recommended by the National Kidney Disease Education Program in conjunction with the National Institutes of Health and the National Kidney Foundation. Clinical conditions in which it may be necessary to measure GFR by using clearance methods include extremes of age and body size, severe malnutrition or obesity, diseases of skeletal muscle, paraplegia or quadriplegia, vegetarian diet, rapidly changing kidney function, and calculation of the dose of potentially toxic drugs that are excreted by the kidneys. 52 Concerning GFR Guidelines for Americans: Normal function or mild renal disease, if clinically at risk: >/=60 mL/min Moderately decreased: 30-59 Severely decreased: 15-29 Renal failure: <15 53 Per NCEP ATP III Guidelines: Results lower than 40 mg/dL are suggestive of increased risk for coronary artery disease. Results > or=to 60 mg/dL are considered a negative risk factor. 54 Per NCEP ATP III Guidelines: Optimal: <100 Near optimal: 100-129 Borderline high: 130-159 High: 160-189 Very high: >189 55 Concerning GFR Guidelines: Normal function or mild renal disease, if clinically at risk: >/=60 mL/min Moderately decreased: 30-59 Severely decreased: 15-29 Renal failure: <15 Glomerular Filtration Rate (GFR) is estimated based on the MDRD equation, which assumes a steady state for creatinine as recommended by the National Kidney Disease Education Program in conjunction with the National Institutes of Health and the National Kidney Foundation. Clinical conditions in which it may be necessary to measure GFR by using clearance methods include extremes of age and body size, severe malnutrition or obesity, diseases of skeletal muscle, paraplegia or quadriplegia, vegetarian diet, rapidly changing kidney function, and calculation of the dose of potentially toxic drugs that are excreted by the kidneys. 56 Concerning GFR Guidelines for Americans: Normal function or mild renal disease, if clinically at risk: >/=60 mL/min Moderately decreased: 30-59 Severely decreased: 15-29 Renal failure: <15 57 Per NCEP ATP III Guidelines: Results lower than 40 mg/dL are suggestive of increased risk for coronary artery disease. Results > or=to 60 mg/dL are considered a negative risk factor. 58 Per NCEP ATP III Guidelines: Optimal: <100 Near optimal: 100-129 Borderline high: 130-159 High: 160-189 Very high: >189 59 Concerning GFR Guidelines: Normal function or mild renal disease, if clinically at risk: >/=60 mL/min Moderately decreased: 30-59 Severely decreased: 15-29 Renal failure: <15 Glomerular Filtration Rate (GFR) is estimated based on the MDRD equation, which assumes a steady state for creatinine as recommended by the National Kidney Disease Education Program in conjunction with the National Institutes of Health and the National Kidney Foundation. Clinical conditions in which it may be necessary to measure GFR by using clearance methods include extremes of age and body size, severe malnutrition or obesity, diseases of skeletal muscle, paraplegia or quadriplegia, vegetarian diet, rapidly changing kidney function, and calculation of the dose of potentially toxic drugs that are excreted by the kidneys. 60 Concerning GFR Guidelines for Americans: Normal function or mild renal disease, if clinically at risk: >/=60 mL/min Moderately decreased: 30-59 Severely decreased: 15-29 Renal failure: <15 61 Per NCEP ATP III Guidelines: Results lower than 40 mg/dL are suggestive of increased risk for coronary artery disease. Results > or=to 60 mg/dL are considered a negative risk factor. 62 Per NCEP ATP III Guidelines: Optimal: <100 Near optimal: 100-129 Borderline high: 130-159 High: 160-189 Very high: >189 63 [employer] [facility] [place] [address] GYNECOLOGIC CYTOLOGY REPORT Accession Number: [id number] Source of Specimen(s): A: SurePath Endocervical Pap Smear - One Vial Clinical Diagnosis and History: Date of Last Menstrual Period: None Provided Menstrual History: Post-menopausal Other Clinical Conditions: Last Pap Smear: 1 YR NL REFLEX TO DIGENE HPV ASSAY IF RESULTS OF THIS PAP ARE ASCUS Specimen Adequacy Satisfactory for evaluation Presence of endocervical/transformation zone component General Categorization Negative for intraepithelial lesion or malignancy Interpretation NEGATIVE FOR INTRAEPITHELIAL LESION OR MALIGNANCY Reported: 05/25/2010 Electronically Signed Out By Jackie LARA(ASCP) [facility] Unless otherwise specified, testing performed by [facility] [place] [address] [place] [address] 64 MIXED UROGENITAL JOSE CONSISTENT WITH CONTAMINATION. REORDER CULTURE IF INDICATED 65 PER NCEP ATP III GUIDELINES: RESULTS LOWER THAN 40 MG/DL ARE SUGGESTIVE OF INCREASED RISK FOR CORONARY ARTERY DISEASE. RESULTS > OR=TO 60 MG/DL ARE CONSIDERED A NEGATIVE RISK FACTOR. 66 PER NCEP ATP III GUIDELINES: OPTIMAL: <100 NEAR OPTIMAL: 100 - 129 BORDERLINE HIGH: 130 - 159 HIGH: 160 - 189 VERY HIGH: >189 67 INTERPRETATION OF CHOL-HDL RATIO CHD RISK FEMALE MALE VERY HIGH >8.3 >14.3 HIGH 5.6 - 8.3 6.7 - 14.3 AVERAGE 3.7 - 5.6 4.0 - 6.7 BELOW AVERAGE 2.5 - 3.7 2.7 - 4.0 PROTECTED <2.5 <2.7 68 PER NCEP ATP III GUIDELINES: RESULTS LOWER THAN 40 MG/DL ARE SUGGESTIVE OF INCREASED RISK FOR CORONARY ARTERY DISEASE. RESULTS > OR=TO 60 MG/DL ARE CONSIDERED A NEGATIVE RISK FACTOR. 69 PER NCEP ATP III GUIDELINES: OPTIMAL: <100 NEAR OPTIMAL: 100 - 129 BORDERLINE HIGH: 130 - 159 HIGH: 160 - 189 VERY HIGH: >189 70 INTERPRETATION OF CHOL-HDL RATIO CHD RISK FEMALE MALE VERY HIGH >8.3 >14.3 HIGH 5.6 - 8.3 6.7 - 14.3 AVERAGE 3.7 - 5.6 4.0 - 6.7 BELOW AVERAGE 2.5 - 3.7 2.7 - 4.0 PROTECTED <2.5 <2.7 71 [employer] [address] [place] [id number] GYNECOLOGIC CYTOLOGY REPORT Accession Number: [id number] Source of Specimen(s): A: SurePath Endocervical Pap Smear - One Vial Clinical Diagnosis and History: Date of Last Menstrual Period: None Provided Menstrual History: Post-menopausal Other Clinical Conditions: REFLEX TO DIGENE HPV ASSAY IF RESULTS OF THIS PAP ARE ASCUS Last Pap Smear: 1 yr nl Specimen Adequacy Satisfactory for evaluation Presence of endocervical/transformation zone component General Categorization Negative for intraepithelial lesion or malignancy Interpretation NEGATIVE FOR INTRAEPITHELIAL LESION OR MALIGNANCY Acute inflammatory cells Reported: 03/27/2009 Electronically Signed Out By Yaz LARA(ASCP) [facility] Pathology, P.CNicholas ed[place] ICD9 Code: V72.31 616.10 Unless otherwise specified, testing performed by [facility] [address] [address] 72 The difference between the most recent result of 10.0 and the current result of 9.5 exceeds the absolute delta value of 0.3 as defined for this test. 73 Concerning GFR GUIDELINES: Normal Function or Mild Renal Disease, if clinically at risk: >/=60mL/min Moderately decreased: 30-59 Severely decreased: 15-29 Renal Failure: <15 Glomerular Filtration Rate (GFR) is estimated based on the MDRD equation, which assumes a steady state for creatinine as recommended by the National Kidney Disease Education Program in conjunction with the National Institutes of Health and the National Kidney Foundation. Clinical conditions in which it may be necessary to measure GFR by using clearance methods include extremes of age and body size, severe malnutrition or obesity, diseases of skeletal muscle, paraplegia or quadriplegia, vegetarian diet, rapidly changing kidney function, and calculation of the dose of potentially toxic drugs that are excreted by the kidneys. 74 Concerning GFR GUIDELINES: Normal Function or Mild Renal Disease, if clinically at risk: >/=60mL/min Moderately decreased: 30-59 Severely decreased: 15-29 Renal Failure: <15 75 This sample is drawn by:cyn 76 PER NCEP ATP III GUIDELINES: RESULTS LOWER THAN 40 MG/DL ARE SUGGESTIVE OF INCREASED RISK FOR CORONARY ARTERY DISEASE. RESULTS > OR=TO 60 MG/DL ARE CONSIDERED A NEGATIVE RISK FACTOR. 77 PER NCEP ATP III GUIDELINES: OPTIMAL: <100 NEAR OPTIMAL: 100 - 129 BORDERLINE HIGH: 130 - 159 HIGH: 160 - 189 VERY HIGH: >189 78 INTERPRETATION OF CHOL-HDL RATIO CHD RISK FEMALE MALE VERY HIGH >8.3 >14.3 HIGH 5.6 - 8.3 6.7 - 14.3 AVERAGE 3.7 - 5.6 4.0 - 6.7 BELOW AVERAGE 2.5 - 3.7 2.7 - 4.0 PROTECTED <2.5 <2.7 79 This sample is drawn by:vbg #1 80 The difference between the most recent result of 9.6 and the current result of 10.0 exceeds the absolute delta value of 0.3 as defined for this test. 81 Concerning GFR GUIDELINES: Normal Function or Mild Renal Disease, if clinically at risk: >/=60mL/min Moderately decreased: 30-59 Severely decreased: 15-29 Renal Failure: <15 Glomerular Filtration Rate (GFR) is estimated based on the MDRD equation, which assumes a steady state for creatinine as recommended by the National Kidney Disease Education Program in conjunction with the National Institutes of Health and the National Kidney Foundation. Clinical conditions in which it may be necessary to measure GFR by using clearance methods include extremes of age and body size, severe malnutrition or obesity, diseases of skeletal muscle, paraplegia or quadriplegia, vegetarian diet, rapidly changing kidney function, and calculation of the dose of potentially toxic drugs that are excreted by the kidneys. 82 Concerning GFR GUIDELINES: Normal Function or Mild Renal Disease, if clinically at risk: >/=60mL/min Moderately decreased: 30-59 Severely decreased: 15-29 Renal Failure: <15 83 PER NCEP ATP III GUIDELINES: RESULTS LOWER THAN 40 MG/DL ARE SUGGESTIVE OF INCREASED RISK FOR CORONARY ARTERY DISEASE. RESULTS > OR=TO 60 MG/DL ARE CONSIDERED A NEGATIVE RISK FACTOR. 84 PER NCEP ATP III GUIDELINES: OPTIMAL: <100 NEAR OPTIMAL: 100 - 129 BORDERLINE HIGH: 130 - 159 HIGH: 160 - 189 VERY HIGH: >189 85 INTERPRETATION OF CHOL-HDL RATIO CHD RISK FEMALE MALE VERY HIGH >8.3 >14.3 HIGH 5.6 - 8.3 6.7 - 14.3 AVERAGE 3.7 - 5.6 4.0 - 6.7 BELOW AVERAGE 2.5 - 3.7 2.7 - 4.0 PROTECTED <2.5 <2.7 86 [facility] Mahindra REVA. [facility] [place] [address] GYNECOLOGIC CYTOLOGY REPORT Accession Number: [id number] Source of Specimen(s): A: [facility] Endocervical Pap Smear - One Vial Clinical Diagnosis and History: Date of Last Menstrual Period: 3 wks Other Clinical Conditions: Last Pap Smear: 1 yr nl REFLEX TO DIGENE HPV ASSAY IF RESULTS OF THIS PAP ARE ASCUS Specimen Adequacy Satisfactory for evaluation Presence of endocervical/transformation zone component General Categorization Negative for intraepithelial lesion or malignancy Interpretation NEGATIVE FOR INTRAEPITHELIAL LESION OR MALIGNANCY Acute inflammatory cells Reported: 01/22/2008 Electronically Signed Out By Melody LARA(ASCP) [facility] dol ICD9 Code: V72.31 Unless otherwise specified, testing performed by [facility] [place] [address] [place] [address] 87 Normal Function or Mild Renal Disease, if clinically at risk: >/=60 mL/min Moderately decreased: 30-59 Severely decreased: 15-29 Renal Failure: <15 Glomerular Filtration Rate (GFR) is estimated based on the MDRD equation, which assumes a steady state for creatinine as recommended by the National Kidney Disease Education Program in conjunction with the National Institutes of Health and the National Kidney Foundation. Clinical conditions in which it may be necessary to measure GFR by using clearance methods include extremes of age and body size, severe malnutrition or obesity, diseases of skeletal muscle, paraplegia or quadriplegia, vegetarian diet, rapidly changing kidney function, and calculation of the dose of potentially toxic drugs that are excreted by the kidneys. 88 SEE REFERENCE LAB REPORT 89 >100,000 CFU/ML ESCHERICHIA COLI 90 PLEASE RECOLLECT 91 Normal Range: Male: <4.98 Female: <4.45 Procedures Date Code Description Status 10/20/2017 [id number] Mammogram Completed 10/16/2016 [id number] Mammogram Completed 10/16/2015 [id number] Mammogram Completed 05/10/2015 [id number] Colonoscopy Completed 10/12/2014 [id number] Mammogram Completed 10/11/2013 [id number] Mammogram Completed 10/08/2012 [id number] Mammogram Completed 09/03/2011 [id number] Mammogram Completed 06/06/2010 [id number] Bone Mineral Density Test Completed 06/06/2010 [id number] Mammogram Completed 04/24/2009 [id number] Mammogram Completed 02/03/2006 42295 Electrocardiogram Complete Completed 11/02/2003 66141 Old Bone Density Study (Dexa) Completed Encounters Type Date Location Provider Dx Diagnosis Office Visit 07/07/2017 Maria Del Carmen Jones MD 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 administrative examinations Office Visit 07/01/2016 10:30a Maria Del Carmen Jones MD E78.2 Mixed hyperlipidemia G40.802 Other epilepsy, not intractable, without status epilepticus Z00.00 Encntr for general adult medical exam w/o abnormal findings Z12.39 Encounter for oth screening for malignant neoplasm of breast Z11.59 Encounter for screening for other viral diseases Office Visit 06/12/2016 11:00a Maria Del Carmen Jones MD J01.00 Acute maxillary sinusitis, unspecified Office Visit 12/28/2015 10:45a Maria Del Carmen Jones MD G40.802 Other epilepsy, not intractable, without status epilepticus E78.2 Mixed hyperlipidemia Office Visit 10/12/2015 9:30a [place] Z02.89 Encounter for other Mashelle, N.P. administrative examinations Office Visit 06/28/2015 8:30a Maria Del Carmen Jones MD E78.2 Mixed hyperlipidemia G40.802 Other epilepsy, not intractable, without status epilepticus Z12.39 Encounter for oth screening for malignant neoplasm of breast Z01.419 Encntr for project account manager exam (general) (routine) w/o abn findings Office Visit 12/08/2014 10:45a Maria Del Carmen Jones MD E78.2 Mixed hyperlipidemia G40.802 Other epilepsy, not intractable, without status epilepticus Office Visit 10/25/2014 10:00a [place] V70.5 Examination Health Of Mashelle, N.P. 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 Medical Routine AT Health Care Facility Office Visit 06/17/2013 9:00a Maria Del Carmen Jones MD 272.2 Hyperlipidemia Mixed V72.31 Routine Supervisor Wool Shearing Examination V76.10 Screening For Malignant Neoplasm Breast V70.0 Exam (Adult) General Medical Routine AT Health Care Facility Office Visit 11/23/2012 10:30a Maria Del Carmen Jones, 272.2 Hyperlipidemia Mixed MD Office Visit 10/20/2012 10:45a [place] V70.0 Exam (Adult) General Mashelle, N.P. Medical Routine AT Health Care Facility Office Visit 03/10/2012 10:30a Maria Del Carmen Jones, 272.2 Hyperlipidemia Mixed MD Office Visit 10/15/2011 8:45a [place] V70.0 Exam (Adult) General Mashelle, N.P. Medical Routine AT Health Care Facility V74.1 Screening Examination Pulmonary Tuberculosis Office Visit 07/18/2011 8:00a Maria Del Carmen Jones MD 727.3 Bursitis Other 724.5 Backache Unspec 272.2 Hyperlipidemia Mixed V72.31 Routine Supervisor Wool Shearing Examination V76.10 Screening For Malignant Neoplasm Breast Office Visit 01/17/2011 10:30a Maria Del Carmen Jones MD 719.46 Pain Joint Lower Leg 272.2 Hyperlipidemia Mixed Office Visit 10/09/2010 1:45p Darryl Rodriguez V70.0 Exam (Adult ) N.P. General Medical Routine AT Health Care Facility V74.1 Screening Examination Pulmonary Tuberculosis Office Visit 05/23/2010 8:30a Maria Del Carmen Jones MD V72.31 Routine Supervisor Wool Shearing Examination V76.10 Screening For Malignant Neoplasm Breast 733.90 Bone & Cartilage Disorder Unspec 272.2 Hyperlipidemia Mixed 466.0 Bronchitis Acute Office Visit 12/18/2009 10:15a Maria Del Carmen Jones MD 272.2 Hyperlipidemia Mixed 296.32 Depressive Disorder Major Recurrent Moderate Office Visit 09/13/2009 9:30a [place] V70.0 Exam (Adult) General Mashelle, N.P. Medical Routine AT Health Care Facility Office Visit 05/02/2009 10:15a Maria Del Carmen Jones MD 296.32 Depressive Disorder Major Recurrent Moderate Office Visit 03/23/2009 10:00a Maria Del Carmen Jones MD 272.2 Hyperlipidemia Mixed 616.10 Vaginitis & Vulvovaginitis Unspec V72.31 Routine Supervisor Wool Shearing Examination V76.10 Screening For Malignant Neoplasm Breast V12.72 History Personal Colonic Polyps V06.1 Ukvizuphuh-Psuaifz-Lyuxcbcz Combined (DTaP) Office Visit 08/01/2008 10:30a Maria Del Carmen Jones MD 272.2 Hyperlipidemia Mixed 296.32 Depressive Disorder Major Recurrent Moderate Office Visit 01/20/2008 8:30a Maria Del Carmen Jones MD 272.2 Hyperlipidemia Mixed V72.31 Routine Supervisor Wool Shearing Examination V76.10 Screening For Malignant Neoplasm Breast Office Visit 11/26/2007 1:45p Maria Del Carmen Jones MD 461.0 Sinusitis Acute Maxillary 684 Impetigo Office Visit 10/15/2007 11:30a Darryl Rodriguez V70.5 Examination Health Of N.P. Defined Subpopulations V70.3 Examination Other Medical For Administrative Purpose Office Visit 08/18/2007 10:15a Maria Del Carmen Jones MD 272.2 Hyperlipidemia Mixed 296.32 Depressive Disorder Major Recurrent Moderate Office Visit 04/27/2007 3:30p Shiela Bolivar, 466.0 Bronchitis Acute RN,COUNTER PERSON,MS 465.9 URI Upper Respiratory Infections Acute Unspec Sites 922.1 Contusion Chest Wall Office Visit 02/13/2007 10:15a Maria Del Carmen Jones, 272.2 Hyperlipidemia Mixed MD Office Visit 12/02/2006 8:30a Maria Del Carmen Jones, V76.10 Screening For MD Malignant Neoplasm Breast V72.31 Routine Supervisor Wool Shearing Examination V70.0 Exam (Adult) General Medical Routine AT Health Care Facility 272.2 Hyperlipidemia Mixed Office Visit 10/09/2006 10:30a Darryl Rodriguez V70.0 Exam (Adult ) N.P. General Medical Routine AT Health Care Facility V70.3 Examination Other Medical For Administrative Purpose Office Visit 03/28/2006 1:30p Maria Del Carmen Jones MD V58.69 Medications Bookkeeping Assistant (Current) Use Encounter 296.32 Depressive Disorder Major Recurrent Moderate 719.85 Joint Disorder Other Spec Pelvic & Thigh Office Visit 02/03/2006 10:15a Maria Del Carmen Jones MD 272.2 Hyperlipidemia Mixed 296.32 Depressive Disorder Major Recurrent Moderate V72.83 Examination Preoperative Other Spec V72.84 Examination Preoperative Unspec V04.81 Need For Prophylactic Vaccination & Inoculation/Influenza Office Visit 11/27/2005 8:30a Maria Del Carmen Jones MD V72.31 Routine Supervisor Wool Shearing Examination V72.3 Examination Gynecological V70.0 Exam (Adult) General Medical Routine AT Health Care Facility 272.2 Hyperlipidemia Mixed 733.00 Osteoporosis Unspec 716.88 Arthropathy Other Spec Sites Office Visit 05/01/2005 10:00a Maria Del Carmen Jones MD 272.2 Hyperlipidemia Mixed 599.0 UTI Urinary Tract Infection Site Not Spec V58.69 Medications Bookkeeping Assistant (Current) Use Encounter 296.32 Depressive Disorder Major Recurrent Moderate Office Visit 11/01/2004 8:30a Maria Del Carmen Jones MD V70.0 Exam ( Adult) General Medical Routine AT Health Care Facility V72.3 Examination Gynecological 729.5 Pain In Limb Office Visit 07/04/2004 10:30a Maria Del Carmen Jones MD 461.0 Sinusitis Acute Maxillary 466.0 Bronchitis Acute Office Visit 05/31/2004 10:30a Maria Del Carmen Jones, 461.0 Sinusitis Acute MD Maxillary Office Visit 04/24/2004 9:15a Maria Del Carmen Jones, 272.2 Hyperlipidemia Mixed V58.69 Medications Bookkeeping Assistant (Current) Use Encounter 296.32 Depressive Disorder Major Recurrent Moderate Office Visit 12/12/2003 1:00p Shiela Bolivar, 461.0 Sinusitis Acute RN,COUNTER PERSON,MS Maxillary Office Visit 10/25/2003 2:15p Maria Del Carmen Jones MD 627.9 Menopausal & Postmenopausal Disorder Unspec V70.0 Exam (Adult) General Medical Routine AT Health Care Facility V72.3 Examination Gynecological 272.2 Hyperlipidemia Mixed Office Visit 04/19/2003 1:00p Maria Del Carmen Jones MD V58.69 Medications Jail (Current) Use Encounter 296.32 Depressive Disorder Major Recurrent Moderate Office Visit 10/12/2002 8:30a Maria Del Carmen Jones MD V70.0 Exam ( Adult) General Medical Routine AT Health Care Facility V72.3 Examination Gynecological 112.1 Candidiasis The Vulva & Vagina Office Visit 09/07/2002 10:15a Maria Del Carmen Jones MD 296.32 Depressive Disorder Major Recurrent Moderate V58.69 Medications Bookkeeping Assistant (Current) Use Encounter 716.99 Arthropathy Unspec Multiple Sites Office Visit 07/08/2002 2:45p Maria Del Carmen Jones MD V58.69 Medications Bookkeeping Assistant (Current) Use Encounter 296.32 Depressive Disorder Major Recurrent Moderate Office Visit 04/21/2002 10:45a Maria Del Carmen Jones MD 296.32 Depressive Disorder Major Recurrent Moderate V58.69 Medications Bookkeeping Assistant (Current) Use Encounter Office Visit 01/19/2002 4:30p [place] V70.3 Examination [facility] Medical For Administrative Purpose Office Visit 12/03/2001 3:00p Maria Del Carmen Jones MD 726.32 Epicondylitis Lateral 727.09 Synovitis & Tenosynovitis Other 727.1 Bunion Office Visit 09/01/2001 8:00a Maria Del Carmen Jones MD V70.0 Exam ( Adult) General Medical Routine AT Health Care Facility V72.3 Examination Gynecological 296.32 Depressive Disorder Major Recurrent Moderate Office Visit 06/16/2001 9:00a Maria Del Carmen Jones, 296.32 Depressive Disorder MD Major Recurrent Moderate Office Visit 05/07/2001 10:00a Maria Del Carmen Jones, 590.80 Pyelonephritis Unspec MD 296.32 Depressive Disorder Major Recurrent Moderate Office Visit 04/29/2001 11:45a Tera Ferreira 590.80 Pyelonephritis Unspec MD Joey Office Visit 03/23/2001 3:45p Tera Ferreira MD Office Visit 02/12/2001 1:00p Tera Ferreira MD Office Visit 12/26/2000 11:45a Mauro Guerra MD Office Visit 06/13/2000 8:00a Shiela Bolivar RN,COUNTER PERSON,MS Office Visit 04/10/2000 4:30p [facility] Shiela Hedrick RN,COUNTER PERSON,MS Plan of Treatment Future Appointment(s):01/08/2018 9:45 am - Maria Del Carmen Azevedo MD at [facility]2017 - Maria Del Carmen Azevedo MDN39.0 Urinary tract infection, site not specifiedComments :Based on pt's symptoms and u.a., which I reviewed with the patient, I will treat with abx listed below. Pt also instructed to push fluids and will send urine off for a culture. Pt understands. given that there was a lot of blood, will send for microscopicMiscellaneous:The patient/parent/physicist acoustics was advised strongly to completely finish the full course of antibiotictherapy unless there was some adverse reaction which should be reported immediately. This will helpto make sure that the organism is eradicated and a relapse will not occur and will lessen the chances of antibiotic resistance.R31.9 Hematuria, ktrpzxtydvmG60.39 Body mass index (BMI) 39.0-39.9, adultAllNew Medication: Cephalexin 500 mg - one pill three times a day for 7 days
[2017-12-31 18:30] VITALS: BP 145/71
[2017-12-31] MEDS ORDERED: Ketorolac INJ* 15 MG/ML 1 ML VIAL IV PUSH ONE (18:42)
[2017-12-31] MEDS ORDERED: cefTRIAXone(*) 1 GM in NS 0.9% 50 ML* 50 ML IVPB ONE (18:43)
--- NOTE | 2017-12-31 18:48 | UC ---
Back Pain HPI - HPI Summary HPI Summary: 67 yo F c/o R flank pain. Sudden onset this morning. Constant. Does not wax/ wanes-- has been same since it began. Radiates to front of abdomen and is associated with nausea. Roughly 1 week ago she began having urinary urgency and frequency, despite producing small amounts of urine when she'd pee. She self- treated for UTI with cranberry juice, which she thought relieved the symptoms until back pain began today. She denies burning w urination. Saw her PCP today where a urine dipstick was performed which she was told "didn't show that much WBCs." urine culture was sent but will not result for 48 hr. Patient was given keflex 500 mg to take. patient presents here b/c pain is too severe. - History of Current Complaint Chief Complaint: UCBackPain Stated Complaint: LOWER BACK PAIN/URINARY Time Seen by Provider: 12/31/17 18:31 Hx Obtained From: Patient Pain Intensity: 10 - Allergies/Home Medications Allergies/Adverse Reactions: Allergies Allergy/AdvReac Type Severity Reaction Status Date / Time No Known Allergies Allergy Verified 12/31/17 18:30 Home Medications: Home Medications Cephalexin CAP* [Keflex CAP*] 500 mg PO TID 12/31/17 [History Confirmed 12/31/17 ] PMH/Surg Hx/FS Hx/Imm Hx - Surgical History Surgical History: Yes Surgery Procedure, Year, and Place: Right [facility], [facility], [facility]. LEFT shoulder - Family History Known Family History: Positive: Respiratory Disease - Social History Alcohol Use: Rare Substance Use Type: None Smoking Status (MU): Never Smoked Tobacco - Immunization History Most Recent Influenza Vaccination: NONE 2016 Most Recent Tetanus Shot: UTD Most Recent Pneumonia Vaccination: NONE Review of Systems Skin: Negative Respiratory: Negative Gastrointestinal: Nausea Genitourinary: Urgency All Other Systems Reviewed And Are Negative: Yes Physical Exam Triage Information Reviewed: Yes Appearance: Other: - appears uncomfortable Vital Signs: Initial Vital Signs Temp 97.2 F 12/31/17 18:24 Pulse 76 12/31/17 18:24 Resp 17 12/31/17 18:24 BP 145/71 12/31/17 18:24 Pulse Ox 100 12/31/17 18:24 Vital Signs Reviewed: Yes Eyes: Positive: Conjunctiva Clear Respiratory: Positive: No respiratory distress, No accessory muscle use Abdomen Description: Positive: Soft, CVA Tenderness (R), Guarding - RLQ. Negative: Distended Skin Exam: Normal Back Pain Course/Dx - Course Course Of Treatment: UA + for 1+blood, 3+ leuk. Will treat for presumed pyelonephritis w IV ceftriaxone x1, toradol for pain - Differential Dx/Diagnosis Differential Diagnosis/HQI/PQRI: Renal Colic, Other - pyelonephritis, appendicitis (on differential given RLQ TTP, however, given that hx is STRONGLY suggestive of UTI, and her pain began in the back, and symptoms developed gradually w/o significant GI involvement, urinary source more likely) Provider Diagnoses: pyelonephritis Discharge - Sign-Out/Discharge Documenting (check all that apply): Patient Departure All imaging exams completed and their final reports reviewed: No Studies - Discharge Plan Condition: Stable Disposition: HOME Prescriptions: Sulfamethox/Trimethoprim DS* [Bactrim DS 800/160 TAB*] 1 tab PO BID 7 Days #14 tab Patient Education Materials: Kidney Infection (ED) Referrals: Brad BLANC,Maria Del Carmen Zepeda [Primary Care Provider] - - Billing Disposition and Condition Condition: STABLE Disposition: Home
[2017-12-31] MEDS ORDERED: Ketorolac INJ* 30 MG/ML 1 ML VIAL ONE (19:09)
[2017-12-31] MEDS ORDERED: cefTRIAXone VIAL(*) 1,000 MG VIAL ONE (19:09)
== END 2017-12-31 20:01 | disposition home or self-care (01) ==
LOC: UCCORT 18:10
DX: N12 Tubulo-interstitial nephritis, not specified as acute or chronic (principal)
CPT/HCPCS: 81003; 87077; 87086; 87186; 96365; 96375; 99212; G0463; J0696; J1885

== ENCOUNTER 2024-04-06 09:45 | Observation (INO) ==
[~2024-04-06 09:45] MED LIST: Metoclopramide 5 MG/ML VIAL (10 mg) IV PRN; NS 0.45% 1000 ml BAG 1,000 ML IV SCH; Naloxone 0.4 mg VIAL 0.4 mg/ml 1 ml VIAL IV PRN; Ondansetron 4 mg VIAL 2 MG/ML 2 ml VIAL IV PRN; ROPIVACAINE 5 MG/ML 30 ML BTL (0.5%) ONE
[2024-04-06] MEDS ORDERED: Lidocaine 2% PF 5 ML VIAL ONE (09:46)
[2024-04-06] MEDS ORDERED: Propofol 10 MG/ML 20 ML BTL ONE (09:47)
[2024-04-06] MEDS ORDERED: KETAMINE HCL 10 MG/ML 20 ml VIAL (200 MG) ONE (09:48)
[2024-04-06] MEDS ORDERED: ceFAZolin 2 GM PREMIX 2 GM/50 ML BAG ONE (09:53)
[2024-04-06] MEDS ORDERED: Tranexamic Acid 1 GM/100ML BAG 2,000 MG/200 ML BAG IV ONE (09:53)
[2024-04-06 10:27] LABS: Rapid COVID-19 Molecular Undetected (Undetected)
[2024-04-06] MEDS ORDERED: fentaNYL 100 mcg/2 ml 50 MCG/ML VIAL ONE ×3 (11:02→15:44)
[2024-04-06] MEDS ORDERED: Midazolam 2 mg/2 ml VIAL 1 mg/ml 2 ml VIAL (2 mg) ONE (11:02)
[2024-04-06] MEDS ORDERED: ROPIVACAINE 5 MG/ML 30 ML BTL (0.5%) ONE (11:02)
[2024-04-06] MEDS ORDERED: Rocuronium 50 mg VIAL 10 mg/ml 5 ml VIAL (50 mg) ONE (12:19)
[2024-04-06] MEDS ORDERED: fentaNYL 250 mcg/5 ml 50 MCG/ML 5 ml VIAL (250 MCG) ONE (12:32)
[2024-04-06] MEDS ORDERED: HYDROmorphone 0.5 MG/0.5 ML SYRINGE ONE (12:43)
[2024-04-06] MEDS ORDERED: Ondansetron 4 mg VIAL 2 MG/ML 2 ml VIAL ONE (13:05)
[2024-04-06] MEDS ORDERED: Dexamethasone IV 4 MG/ML VIAL 1 ml VIAL ONE (13:05)
[2024-04-06] MEDS ORDERED: Ondansetron ODT 4 mg TAB 4 MG TAB PO PRN (15:18)
[2024-04-06] MEDS ORDERED: Morphine 2 MG/ML SYRINGE IV PRN (15:18)
[2024-04-06] MEDS ORDERED: Ondansetron 4 mg VIAL 2 MG/ML 2 ml VIAL IV PRN (15:18)
[2024-04-06] MEDS ORDERED: Magnesium Hydroxide LIQ 30 ML UDC PO PRN (15:18)
[2024-04-06] MEDS ORDERED: Calcium Carb (TUMS) 500 mg CHEW TAB PO PRN (15:18)
[2024-04-06] MEDS ORDERED: Lactulose 30 ml UDC PO PRN (15:18)
[2024-04-06] MEDS: fentaNYL 100 mcg/2 ml 50 MCG/ML VIAL IV PRN (15:23)
[2024-04-06] MEDS: Acetaminophen IV 1 GM/100ML 1,000 MG/100 ML BAG IV ONE (17:49)
[2024-04-06] MEDS: Buffered Lidocaine 1% SYRIN 1 ml INTRADERM ONE (17:49)
[2024-04-06] MEDS: Scopolamine 1 mg/72hr PATCH TRANSDERM ONE (17:49)
[2024-04-06] MEDS: Lactated Ringers 1000 ml BAG 1,000 ML IV SCH ×2 (17:49→18:00)
[2024-04-06] MEDS: ceFAZolin 2 GM PREMIX 2 GM/50 ML BAG IV SCH (20:44)
[2024-04-06] MEDS: Magnesium Hydroxide LIQ 30 ML UDC PO SCH (20:45)
[2024-04-06] MEDS: CMCS:Zonisamide 100 mg CAP (NF) PO SCH ×2 (20:46→22:20)
[2024-04-07 06:52] LABS: Hematocrit 35.2 % (35-45); Hemoglobin 12.1 g/dL (11.5-14.3); Mean Platelet Volume 7.9 fL (7.5-11.2); Platelet Count 246 10^3/uL (150-450)
[2024-04-07 08:21] LABS: Calcium 8.9 mg/dL (8.6-10.3); Creatinine, Serum 0.91 mg/dL (0.51-0.95); Potassium 4.4 mmol/L (3.5-5.0)
[2024-04-07] MEDS: Vitamin THERAPEUTIC TAB PO SCH (08:43)
[2024-04-07 10:22] VITALS: BP 129/61
== END 2024-04-07 14:00 | disposition home or self-care (01) ==
LOC: SSU 09:45 → OR 09:45
PROVIDERS: ADMIT Orthopaedic Surgery Adult Reconstructive Orthopaedic Surgery; ATTEND Orthopaedic Surgery Adult Reconstructive Orthopaedic Surgery